=== PATIENT | male | born 1975 | race Caucasian/White ===

== ENCOUNTER → 2016-05-24 | Outpatient (CLI) | payer BC ==
[~2016-05-24] MED LIST: LITH300T2 PO; QUET300T2 PO
== END | disposition home or self-care (01) ==
LOC: C.LABBC 13:23
PROVIDERS: ATTEND Internal Medicine
DX: E03.9 Hypothyroidism, unspecified (principal)

== ENCOUNTER → 2017-07-06 | Outpatient (CLI) | payer OTHER ==
[2017-07-06 15:13] LABS: ALBUMIN 3.9 gm/dl (3.4-5.0); ALT/SGPT 35 U/L (12-78); BLOOD UREA NITROGEN 16 mg/dl (7-18); CALCIUM 9.3 mg/dl (8.5-10.1); CARBON DIOXIDE 25 mmol/L (21-32); CHOLESTEROL 175 mg/dl (0-200); CREATININE 0.96 mg/dl (0.60-1.40); GLUCOSE 99 mg/dl (70-99); POTASSIUM 3.8 mmol/L (3.5-5.1); SODIUM 138 mmol/L (136-145)
[2017-07-06 15:25] LABS: ALKALINE PHOSPHATASE 59 U/L (45-117); AST/SGOT 20 U/L (15-37); LDL CHOLESTEROL CALCULATED 109 mg/dl
== END | disposition home or self-care (01) ==
LOC: C.LABBC 10:39
PROVIDERS: ATTEND Nurse Practitioner Adult Health
DX: Z00.00 Encounter for general adult medical examination without abnormal findings (principal); E03.9 Hypothyroidism, unspecified; F31.9 Bipolar disorder, unspecified; E66.9 Obesity, unspecified

== ENCOUNTER 2022-03-16 17:48 | Inpatient (IN) ==
[2022-03-16 18:51] LABS: Basophils # (auto) 0.03 K/uL (0-0.2); Basophils % (auto) 0.2 %; Eosinophils # (auto) 0.17 K/uL (0-0.50); Eosinophils % (auto) 1.2 %; Hematocrit (blood only) 36.9 % (40.1-51.0); Hemoglobin 12.2 g/dl (14.0-18.0); Immature Granulocytes # (auto) 0.17 K/uL (0.00-0.02); Immature Granulocytes % (auto) 1.2 %; Lymphocytes # (auto) 0.79 K/uL (1.2-3.4); Lymphocytes % (auto) 5.7 %; Mean Corpuscular Hemoglobin 29.4 pg (25.0-34.0); Mean Corpuscular Hgb Conc 33.1 g/dL (32.0-36.0); Mean Corpuscular Volume 88.9 fL (80.0-100.0); Mean Platelet Volume 10.2 fL (9.4-12.4); Monocytes # (auto) 1.12 K/uL (0.24-0.82); Monocytes % (auto) 8.1 %; Neutrophils # (auto) 11.57 K/uL (1.4-6.5); Neutrophils % (auto) 83.6 %; Platelet Count 219 K/uL (130-400); RDW Standard Deviation 42.5 fL (36.4-46.3); Red Blood Count 4.15 M/uL (4.63-6.08); White Blood Count 13.85 K/ul (4.8-10.8)
[2022-03-16] MEDS ORDERED: SODIUM CHLORIDE 0.9% 1000ML 1,000 ML IV ONE (18:57)
[2022-03-16] MEDS ORDERED: CLINDAMYCIN/D5W 600 MG/50 ML BAG IV ONE (18:57)
--- NOTE | 2022-03-16 18:59 | Emergency Department Note ---
Impression & Plan Abscess of face ADMIT ED Provider Note HPI: The patient is a 46-year-old gentleman with history of bipolar disorder, presents the emergency department for evaluation of a dental infection. Patient states that this past (7 days ago) he developed some dental pain in the area of his left lower jaw, patient states that he developed some swelling over the past several days and actually saw his dentist on Sunday. He was referred to an oral surgeon who he saw today, Dr. Johnston in [place], and he states he was informed by Dr. Johnston to go to the emergency room at [facility] for IV antibiotics as the swelling had acutely worsened. Patient states that he lives in the [place] area and therefore did not want to go to the hospital at [place] and came to this hospital for further assessment. On arrival here the patient does have significant swelling in the soft tissue of the left lower mandible, he is saturating well on room air and he is tolerating his own secretions without issue, he is hemodynamically stable on arrival and otherwise does not appear to be in any acute physical distress. ROS: -HEENT: Left-sided jaw pain/dental pain *10 point review systems was conducted and is otherwise negative unless stated above *Outpatient medications and allergy history reviewed PE: General: Alert HEENT: Obvious swelling of the left mandibular region, poor dentition in the oral cavity throughout, no overlying cutaneous erythema, uvula is midline, no angioedema of lips or tongue Eyes: Extraocular eye movement is intact, no scleral erythema Pulmonary: Clear to auscultation bilaterally, no wheezing Cardio: Regular rate and rhythm GI: Abdomen is soft, nontender : No suprapubic tenderness MSK: No evidence of trauma or malformation of the extremities, no edema Skin: No evidence of rash Neuro: Alert, no focal deficits Psychiatric: Cooperative Interventions provided in ED: -IV clindamycin Medical Decision Making: Patient presented to the emergency department with some left-sided facial swelling that is been ongoing for the past week. He was referred to the hospital by an oral surgeon that he saw today in [place], [place]. Patient states he preferred to come to this hospital as he lives locally in [place]. On arrival here to the ED the patient is in no acute distress but does have obvious swelling of the left mandibular region consistent with likely abscess. CT imaging of the face with IV contrast was obtained and shows evidence of a 4 cm x 2 cm abscess within the left masseter muscle concerning for intramuscular abscess. Likely seeded from dental infection. Patient's lab work shows evidence of leukocytosis greater than 13,000, blood cultures were ordered and patient was treated with IV clindamycin as he is noted to have a penicillin allergy. Patient declined pain medication. I discussed the patient's case with on-call oral maxillofacial surgery, Dr. Mendes, he is in agreement for consultation and does recommend admission[facility], patient was in agreement to the above plan he was admitted in stable condition for further care and surgery consult. Diagnosis: 1. Intramuscular abscess, left masseter muscle 2. Facial pain, acute 3. Multiple dental caries Disposition: Admission Naveen Aldridge DO Emergency Medicine Past Med/Surg History Medical History (Updated 03/16/22 @ 21:17 by Naveen Aldridge DO) Bipolar disorder Hypothyroidism Surgical History (System 10/07/19 @ 10:46 by Sandy Reyes) No pertinent past surgical history Family History (System 10/07/19 @ 10:46 by Sandy Reyes) Mother Hypertension Hyperlipidemia Peripheral vascular disease Cancer Father Hearing loss Other No family history of adverse response to anesthesia No family history of bleeding disorder No pertinent family history Social History (Updated 02/16/20 @ 15:20 by Azalea Forte) Smoking Status: Former smoker Tobacco Type: Cigarettes Age Started Using Tobacco: 19; Cigarettes Per Day: 10; Hx Alcohol Use: No Hx Substance Use: No Preferred Language: Turkish Communication Ability: Effective Visual Impairment: Partially Limited Hearing Ability: Normal Tracer Clerk Required: No marital status: Single Current Living Situation: Alone current occupational status: employed current occupation: Educator Feels Safe at Home: Yes Childhood Exposure to Second-Hand Smoke: Yes caffeine: Yes Dental Care, Regularly: No Physical Activity Frequency: Does not Exercise Seatbelt Use: always Sunscreen Use: Yes Allergies Allergies Allergy/AdvReac Type Severity Reaction Status Date / Time Penicillins Allergy Unknown . Verified 03/16/22 18:32 shellfish derived Allergy Unknown Verified 03/16/22 18:32 Home Meds Home Medications Medication Instructions Recorded Confirmed lithium carbonate 300 mg tablet 1,500 mg PO HS 03/16/22 03/16/22 quetiapine 300 mg tablet,extended 600 mg PO HS 03/16/22 03/16/22 release 24 hr (Seroquel XR) Results & Data (ED) Vital Signs Vital Signs - 24 hr 03/16/22 18:02 03/16/22 21:06 Temperature 36.4 C L Temperature Source Temporal Artery Scan Pulse Rate 93 H Pulse Rate [Left Finger] 82 Pulse Rhythm Regular Pulse Rhythm [Left Finger] Regular Pulse Strength Normal Pulse Strength [Left Finger] Normal Respiratory Rate 18 18 Respiratory Effort / Characteristics Non-Labored Spontaneous Non-Labored Respiratory Depth Normal Normal Respiratory Pattern Regular Regular Blood Pressure 101/70 Blood Pressure [Right Arm] 119/76 Blood Pressure Mean 80 Blood Pressure Mean [Right Arm] 90 Blood Pressure Position Sitting Blood Pressure Position [Right Arm] Lying Pulse Oximetry 95 97 Oxygen Delivery Method Room Air Room Air Sepsis Recent Fever Within 48 Hours No Sepsis New/Unexplained Change in Mental Status No Sepsis Action Taken by Nursing No Action Required Laboratory Data Result diagrams: 03/16/22 18:39 03/16/22 18:39 Lab Results 03/16/22 03/16/22 Range/Units 18:39 18:39 WBC 13.85 H (4.8-10.8) K/ul RBC 4.15 L (4.63-6.08) M/uL Hgb 12.2 L (14.0-18.0) g/dl Hct 36.9 L (40.1-51.0) % MCV 88.9 (80.0-100.0) fL MCH 29.4 (25.0-34.0) pg MCHC 33.1 (32.0-36.0) g/dL RDW Std Deviation 42.5 (36.4-46.3) fL RDW Coeff of Guerrero 13.0 (11.5-14.5) % Plt Count 219 (130-400) K/uL MPV 10.2 (9.4-12.4) fL Immature Gran % (Auto) 1.2 % Neut % (Auto) 83.6 % Lymph % (Auto) 5.7 % [place] % (Auto) 8.1 % Eos % (Auto) 1.2 % Baso % (Auto) 0.2 % Neut # (Auto) 11.57 H (1.4-6.5) K/uL Lymph # (Auto) 0.79 L (1.2-3.4) K/uL [place] # (Auto) 1.12 H (0.24-0.82) K/uL Eos # (Auto) 0.17 (0-0.50) K/uL Baso # (Auto) 0.03 (0-0.2) K/uL Immature Gran # (Auto) 0.17 H (0.00-0.02) K/uL Sodium 133 L (136-145) mmol/L Potassium 3.6 (3.5-5.1) mmol/L Chloride 102 (98-107) mmol/L Carbon Dioxide 27 (21-32) mmol/L Anion Gap 4 (3-11) BUN 18 (6-23) mg/dl Creatinine 1.59 H (0.6-1.4) mg/dl Est Cr Clr Drug Dosing 67.6 ml/min Est GFR ( Amer) 59.0 ml/min Est GFR (Non-Af Amer) 50.9 ml/min BUN/Creatinine Ratio 11.3 (10-20) Glucose 127 H (70-99(Fasting)) mg/dl Calcium 9.2 (8.5-10.1) mg/dl Total Bilirubin 0.5 (0.2-1.0) mg/dl AST 42 H (13-39) U/L ALT 53 H (7-52) U/L Alkaline Phosphatase 81 (34-104) U/L Total Protein 6.8 (6.0-8.3) gm/dl Albumin 3.8 (3.4-5.0) gm/dl Globulin 3.0 (2.5-4.0) gm/dl Albumin/Globulin Ratio 1.3 (0.9-2) Administered Medications Discontinued Medications Clindamycin Phosphate (Cleocin/D5w) 600 mg in 50 mls @ 100 mls/hr IV NOW ONE Stop: 03/16/22 19:26 Last Infusion: 03/16/22 20:01 Dose: 0 mls/hr Documented By: [facility] Admin: 03/16/22 19:22 Dose: 100 mls/hr Documented By: EMILY Sodium Chloride (Nss 1000ml) 1,000 mls @ 999 mls/hr IV .Q1H1M ONE Stop: 03/16/22 19:57 Last Infusion: 03/16/22 20:24 Dose: 0 mls/hr Documented By: [facility] Admin: 03/16/22 19:22 Dose: 999 mls/hr Documented By: MICHELA Ioversol (Optiray 350 100ml) 80 ml IV ONCE ONE Stop: 03/16/22 19:53 Last Admin: 03/16/22 19:52 Dose: 80 ml Documented By: BETH Imaging Data Radiologist's Impression: Face CT 03/16/22 18:[address] WITH CONTRAST CLINICAL HISTORY: Left-sided facial swelling. Evaluate for abscess. COMPARISON STUDY: Sinus CT May 30, 2011. TECHNIQUE: Axial images of the face were obtained following intravenous injection of 81 cc of Optiray 350 IV. Sagittal and coronal reconstructions were viewed. Automated exposure control was utilized for the study. A dose lowering technique was utilized adhering to the principles of ALARA. FINDINGS: Visualized portions of the intracranial contents are unremarkable. Mastoid air cells are clear. There is mild polypoid mucosal thickening of the sinuses. Orbits are unremarkable. There is extensive left facial and upper neck stranding. There is asymmetric thickening of the left platysma. Note is made of a complex multiloculated rim-enhancing fluid collection within the left masseter muscle. This measures approximately 4 x 2 x 1.7 cm. Possible tiny fluid collection within the medial left medial pterygoid muscle is noted with slight asymmetric enlargement of this muscle as well. There is adjacent stranding. No additional fluid collections are present. The parotid and submandibular glands are unremarkable. There is no mass effect upon the airway. Epiglottis is normal. Several dental caries are noted. There is subtle periapical lucency of the left second mandibular molar. Multiple enlarged left cervical lymph nodes are noted. Index left level 2 node measures 1.4 x 1.3 cm. These nodes are likely reactive. IMPRESSION: 1. Left facial and upper neck cellulitis. Rim-enhancing fluid collection within the left masseter muscle, measuring approximately 4 x 2 x 1.7 cm. This represents an intramuscular abscess. Possible tiny abscess within the left medial pterygoid muscle. Definitive source is not identified although this may be odontogenic. Subtle periapical lucency/abscess of the left second mandibular molar. Multiple dental caries. 2. Left cervical lymphadenopathy which is likely reactive. ACT 112: Negative or not required by law. Electronically signed by: Hunter Cristina M.D. 03/16/2022 8:12 PM Discharge Plan Visit Data Chief Complaint: Referred by Doctor Stated Complaint: REFERRED BY DOC, IV ANTIBIOTIC ED Provider: Naveen Aldridge Discharge Problem: Abscess of face Forms Stand Alone Forms: [facility] Prescriptions Prescriptions: No Action lithium carbonate 300 mg tablet 1,500 mg PO HS quetiapine [Seroquel XR] 300 mg tablet extended release 24 hr 600 mg PO HS Referrals Referrals: Tez Randolph MD [Primary Care Provider] -
[2022-03-16 19:09] LABS: Albumin Globulin Ratio 1.3 (0.9-2); Albumin Level 3.8 gm/dl (3.4-5.0); BUN Creatinine Ratio 11.3 (10-20); Bilirubin,Total 0.5 mg/dl (0.2-1.0); Calcium 9.2 mg/dl (8.5-10.1); Creatinine Clr Calc Pharmacy 67.6 ml/min; Est GFR (Non-African American) 50.9 ml/min; Potassium 3.6 mmol/L (3.5-5.1); Total Protein 6.8 gm/dl (6.0-8.3)
[2022-03-16] MEDS ORDERED: OPTIRAY 350 100ml IV ONE (19:52)
--- NOTE | 2022-03-16 20:14 | CT Scan Report ---
FACIAL CT WITH CONTRAST CLINICAL HISTORY: Left-sided facial swelling. Evaluate for abscess. COMPARISON STUDY: Sinus CT May 30, 2011. TECHNIQUE: Axial images of the face were obtained following intravenous injection of 81 cc of Optiray 350 IV. Sagittal and coronal reconstructions were viewed. Automated exposure control was utilized fo r the study. A dose lowering technique was utilized adhering to the principles of ALARA. FINDINGS: Visualized portions of the intracranial contents are unremarkable. Mastoid air cells are cl ear. There is mild polypoid mucosal thickening of the sinuses. Orbits are unremarkable. There is exte nsive left facial and upper neck stranding. There is asymmetric thickening of the left platysma. Note is made of a complex multiloculated rim-enhancing fluid collection within the left masseter muscle. This measures approximately 4 x 2 x 1.7 cm. Possible tiny fluid collection within the medial left med ial pterygoid muscle is noted with slight asymmetric enlargement of this muscle as well. There is adj acent stranding. No additional fluid collections are present. The parotid and submandibular glands ar e unremarkable. There is no mass effect upon the airway. Epiglottis is normal. Several dental caries are noted. There is subtle periapical lucency of the left second mandibular molar. Multiple enlarged left cervical lymph nodes are noted. Index left level 2 node measures 1.4 x 1.3 cm. These nodes are l ikely reactive. IMPRESSION: 1. Left facial and upper neck cellulitis. Rim-enhancing fluid collection within the left masseter mu scle, measuring approximately 4 x 2 x 1.7 cm. This represents an intramuscular abscess. Possible tiny abscess within the left medial pterygoid muscle. Definitive source is not identified although this m ay be odontogenic. Subtle periapical lucency/abscess of the left second mandibular molar. Multiple de ntal caries. 2. Left cervical lymphadenopathy which is likely reactive. ACT 112: Negative or not required by law. Electronically signed by: Hunter Cristina M.D. 03/16/2022 8:12 PM
--- NOTE | 2022-03-16 21:11 | History & Physical Report ---
Date of Service March 16, 2022 Assessment & Plan (1) Cellulitis and abscess of oral soft tissues: Plan: - 1 week of worsening left sided jaw pain and swelling. - Face CT: * Left facial and upper neck cellulitis. Rim-enhancing fluid collection within the left masseter muscle, measuring approximately 4 x 2 x 1.7 cm. This represents an intramuscular abscess. Possible tiny abscess within the left medial pterygoid muscle. Definitive source is not identified although this may be odontogenic. Subtle periapical lucency/abscess of the left second mandibular molar. Multiple dental caries. * Left cervical lymphadenopathy which is likely reactive. - WBC 13 w/ neutrophil predominance. - Admit to PCU to monitor airway given severity of swelling. HOB elevated at night. - Patient will be placed on clindamycin IV and NPO at midnight per possible OR tomorrow. - Dr. Mendes with oromaxillary service consulted, appreciate his assistance and recommendations. (2) Bipolar disorder: Plan: - Hold lithium given low sodium and ZHANNA. Continue Seroquel--patient requires name brand, he has been informed we only have generic care, he is willing to have family member bring in his home medication. - Checking a lithium level. (3) Hypothyroidism: Plan: - Reported history of, no current medications past several years. Used to be on low-dose. - Checking TSH w/ reflex T4. (4) ZHANNA (acute kidney injury): Plan: - Cr 1.59, baseline < 1 - Suspect secondary to poor PO intake due to swelling from infection, also lithium induced. - NSS 1L in ED; continue LRs 125cc/hr. - Repeat BMP in AM. - Renally dose medications as able, avoid nephrotoxins. (5) Hyponatremia: Plan: - Na 133, suspect 2/2 poor hydration and lithium. - Urine, serum osm to be added on. - Will provide IVF given Zhanna and monitor for improvement. (6) Currently smokes tobacco: Plan: - Quit smoking cigarettes in November, uses chewing tobacco frequently, not daily. - Recommend cessation. Plan - Admit to PCU for airway monitoring. - SCDs for VTE ppx, defer on chemoppx given age, mobility. - Full Code. History of Present Illness Chief Complaint: Left-sided facial swelling, pain x 1 week Primary Care Provider: Tez Randolph MD Farzad Hunt is a 46 y/o male with a PMH of bipolar disorder and hypothyroidism who is presenting today at the referral of an outside oral surgeon due to concerns for facial cellulitis and abscess. One week ago today, he noticed a sudden onset of stabbing jaw pain on the left side that was mild at first, however over the course of 3 days became quite severe. On Sunday he woke up with obvious swelling on the left side of his face in the jaw area. He saw his dentist 2 placed him on clindamycin with Flagyl and referred him to an oral surgeon. He saw Dr. Johnston in [place] today, due to the severity of the swelling and the fact that he will be getting worse despite oral antibiotics for 2 days, he referred him to the ED for further evaluation. Patient complains of worsening swelling to the area causing a great deal of pain, otherwise has been without any fever chills, myalgias, fatigue. Feels he is breathing well, handling his own secretions and has not had any swallowing difficulties. It is somewhat uncomfortable for him to sleep at night, but has not been struggling to breathe. He is not sure how the infection started, he notes he does have several dental cavities he has been meaning to address, but has had no acute injury to the mouth, no recent injuries. He does use smokeless tobacco several times a week. Labs significant for WBC 13 w/ left shift, creatinine elevated 1.59, with sodium of 133. AST and ALT also mildly elevated at 42 and 53 respectively. He also has a normocytic anemia, with an Hgb of 12.2. 13.7 on last check in 2019. Face CT: Left facial and upper neck cellulitis. Rim-enhancing fluid collection within the left masseter muscle, measuring approximately 4 x 2 x 1.7 cm. This re presents an intramuscular abscess. Possible tiny abscess within the left medial pterygoid muscle. Definitive source is not identified although this may be odontogenic. Subtle periapical lucency/abscess of the left second mandibular molar. Multiple dental caries. Allergies Allergy/AdvReac Type Severity Reaction Status Date / Time Penicillins Allergy Unknown . Verified 03/16/22 18:32 shellfish derived Allergy Unknown Verified 03/16/22 18:32 Home Medications Medication Instructions Recorded Confirmed Type lithium carbonate 300 mg tablet 1,500 mg PO HS 03/16/22 03/16/22 History quetiapine 300 mg tablet,extended 600 mg PO HS 03/16/22 03/16/22 History release 24 hr (Seroquel XR) Past Med/Surg History Medical History Bipolar disorder Hypothyroidism Surgical History No pertinent past surgical history Family History Mother Hypertension Hyperlipidemia Peripheral vascular disease Cancer Father Hearing loss Other No family history of adverse response to anesthesia No family history of bleeding disorder No pertinent family history Social History Smoking Status: Former smoker Tobacco Type: Cigarettes Age Started Using Tobacco: 19; Cigarettes Per Day: 10; Hx Alcohol Use: No Hx Substance Use: No Preferred Language: Belarusian Communication Ability: Effective Visual Impairment: Partially Limited Hearing Ability: Normal Hose Seamer Required: No Beliefs That Will Affect Care: None marital status: Single Current Living Situation: Alone current occupational status: employed current occupation: Educator Other Information That Helps Us Care for You: No Feels Safe at Home: Yes Safety Concerns: Feels Safe At This Time Childhood Exposure to Second-Hand Smoke: Yes caffeine: Yes Dental Care, Regularly: No Physical Activity Frequency: Does not Exercise Seatbelt Use: always Sunscreen Use: Yes Assistive Devices: None Review of Systems Review of Systems: Constitutional: No fever/chills, weakness, fatigue, myalgias, anorexia, night sweats Eyes: No diplopia, no worsening or blurred vision ENT: Progressive left-sided stabbing jaw pain, swelling, difficulty opening jaw x1 week Respiratory: No cough, sputum, dyspnea at rest or on exertion Cardiovascular: No chest pain, tightness or palpitations Abdomen: No pain, nausea, vomiting, diarrhea or constipation : Denies dysuria, hematuria, increased urgency/frequency, urinary retention Musculoskeletal: No joint pain, calf pain, swelling Neurologic: No weakness, numbness/tingling, or balance problems Psychiatric: No anxiety or depression Skin: No rash or itch Physical Exam Physical Exam: General: awake, alert, no apparent distress Head: Normocephalic, atraumatic ENT: Left-sided facial and jaw swelling with tenderness to palpation; oral exam limited due to patient's inability to open mouth wide, however uvula is midline, there is no tongue or lip swelling, poor dentition noted throughout; PERRL, EOMI, no pharyngeal exudate, mucous membranes moist Chest: Clear to auscultation, on room air, no adventitious breath sounds Cardiac: Regular rate and rhythm, no murmur, no JVD, normal peripheral pulses, good capillary refill Abdominal: NABS x 4 quadrants, soft, nontender to palpation, no rebound, guarding or tenderness Extremities: Normal inspection, no peripheral edema or erythema, calfs nontender to palpation Psych: Normal mood and affect Neuro: AAO x 3, strength intact bilaterally and rated 5/5, no motor deficits, speech is clear, no peripheral sensory deficits Skin: no rash or erythema Results & Data Results & Data ([facility]) Vital Signs (Past 12 Hours) Vital Signs Temp Pulse Resp BP Pulse Ox O2 Del Method 03/16/22 18:02 36.4 C L 93 H 18 101/70 95 Room Air Laboratory Results Abnormal lab results 03/16/22 03/16/22 03/16/22 Range/Units 18:39 18:39 20:49 WBC 13.85 H (4.8-10.8) K/ul RBC 4.15 L (4.63-6.08) M/uL Hgb 12.2 L (14.0-18.0) g/dl Hct 36.9 L (40.1-51.0) % Neut # (Auto) 11.57 H (1.4-6.5) K/uL Lymph # (Auto) 0.79 L (1.2-3.4) K/uL Evangeline # (Auto) 1.12 H (0.24-0.82) K/uL Immature Gran # (Auto) 0.17 H (0.00-0.02) K/uL Sodium 133 L (136-145) mmol/L Creatinine 1.59 H (0.6-1.4) mg/dl Glucose 127 H (70-99(Fasting)) mg/dl AST 42 H (13-39) U/L ALT 53 H (7-52) U/L Ur Specific [place] 1.038 H (1.000-1.030) Urine Urobilinogen Positive H (Negative) Ur Leukocyte Esterase Trace H (Negative) Diagnostic Findings Face CT 03/16/22 18:[address] WITH CONTRAST CLINICAL HISTORY: Left-sided facial swelling. Evaluate for abscess. COMPARISON STUDY: Sinus CT May 30, 2011. TECHNIQUE: Axial images of the face were obtained following intravenous injection of 81 cc of Optiray 350 IV. Sagittal and coronal reconstructions were viewed. Automated exposure control was utilized for the study. A dose lowering technique was utilized adhering to the principles of ALARA. FINDINGS: Visualized portions of the intracranial contents are unremarkable. Mastoid air cells are clear. There is mild polypoid mucosal thickening of the sinuses. Orbits are unremarkable. There is extensive left facial and upper neck stranding. There is asymmetric thickening of the left platysma. Note is made of a complex multiloculated rim-enhancing fluid collection within the left masseter muscle. This measures approximately 4 x 2 x 1.7 cm. Possible tiny fluid collection within the medial left medial pterygoid muscle is noted with slight asymmetric enlargement of this muscle as well. There is adjacent stranding. No additional fluid collections are present. The parotid and submandibular glands are unremarkable. There is no mass effect upon the airway. Epiglottis is normal. Several dental caries are noted. There is subtle periapical lucency of the left second mandibular molar. Multiple enlarged left cervical lymph nodes are noted. Index left level 2 node measures 1.4 x 1.3 cm. These nodes are likely reactive. IMPRESSION: 1. Left facial and upper neck cellulitis. Rim-enhancing fluid collection within the left masseter muscle, measuring approximately 4 x 2 x 1.7 cm. This represents an intramuscular abscess. Possible tiny abscess within the left medial pterygoid muscle. Definitive source is not identified although this may be odontogenic. Subtle periapical lucency/abscess of the left second mandibular molar. Multiple dental caries. 2. Left cervical lymphadenopathy which is likely reactive. ACT 112: Negative or not required by law. Electronically signed by: Hunter Cristina M.D. 03/16/2022 8:12 PM Supervising Physician Co-Signing Physician Notes Attending addendum: I have physically seen this patient, have supervised the FELI's activities, and agree with the H&P unless as otherwise noted. Assessment and Plan: Cellulitis and abscess of oral soft tissue/left masseter muscle fluid collection/abscess Dr. Mendes, maxillofacial surgery is aware of patient- Allergic to penicillins Placed on clindamycin 600 mg IV every 8 hours N.p.o. for possible OR tomorrow Acute kidney injury- Creatinine 1.59, with baseline 0.88 Continue IV fluid rehydration, and repeat laboratories in a.m. Check lithium level for possible lithium toxicity Bipolar disorder- Holding lithium due to potential for exacerbating of acute kidney injury Continue Seroquel XR Remaining orders and notations as noted PG Care Time/CCT Total # of Minutes Spent Total Time Spent with Patient: Total time spent is greater than 50% in coordination of care (as documented) at patient's floor/unit and/or counseling patient: Coding Level of Care Code 00529 Initial Inpt Care Lvl 3 Diagnoses Cellulitis and abscess of oral soft tissues K12.2 Bipolar disorder F31.9 Hypothyroidism E03.9 ZHANNA (acute kidney injury) N17.9 Hyponatremia E87.1 Currently smokes tobacco F17.200
[2022-03-16 21:35] LABS: Appearance Urine Clear (Clear); Bacteria Urine Automated Negative (Negative); Bilirubin Urine Negative (Negative); Blood Urine Negative (Negative); Color Urine Yellow; Epithelial Cell Urine Auto >30 /lpf (0-5); Glucose Urine UA Negative (Negative); Ketones Urine Negative (Negative); Leukocyte Esterase Urine Trace (Negative); Nitrite Urine Negative (Negative); Protein Urine Negative (Negative); RBC Urine Automated 0-4 /hpf (0-4); Specific Gravity Urine 1.038 (1.000-1.030); Urobilinogen Urine Positive (Negative); WBC Urine Automated >30 /hpf (0-5); pH Urine 5.5 (4.5-7.5)
[2022-03-16] MEDS ORDERED: ONDANSETRON INJ 2 MG/ML 2 ML VIAL IV PRN (22:27)
[2022-03-16] MEDS ORDERED: MoRPHine SULFATE 4 MG/ML 1 ML CARP\\VIAL IV PRN (22:27)
[2022-03-16] MEDS ORDERED: MoRPHine SULFATE 2 MG/ML CARP IV PRN (22:27)
[2022-03-16] MEDS: LACTATED RINGER'S 1,000 ML IV SCH (23:39)
[2022-03-17] MEDS: CLINDAMYCIN/D5W 600 MG/50 ML BAG IV SCH ×3 (03:08→21:35)
[2022-03-17 06:58] LABS: Basophils # (auto) 0.03 K/uL (0-0.2); Basophils % (auto) 0.3 %; Eosinophils # (auto) 0.23 K/uL (0-0.50); Hematocrit (blood only) 38.1 % (40.1-51.0); Hemoglobin 12.4 g/dl (14.0-18.0); Immature Granulocytes # (auto) 0.09 K/uL (0.00-0.02); Immature Granulocytes % (auto) 0.8 %; Lymphocytes # (auto) 0.96 K/uL (1.2-3.4); Lymphocytes % (auto) 8.3 %; Mean Corpuscular Hemoglobin 29.4 pg (25.0-34.0); Mean Corpuscular Hgb Conc 32.5 g/dL (32.0-36.0); Mean Corpuscular Volume 90.3 fL (80.0-100.0); Mean Platelet Volume 10.2 fL (9.4-12.4); Monocytes # (auto) 0.86 K/uL (0.24-0.82); Monocytes % (auto) 7.4 %; Neutrophils # (auto) 9.43 K/uL (1.4-6.5); Neutrophils % (auto) 81.2 %; Platelet Count 240 K/uL (130-400); RDW Coefficient of Variation 13.4 % (11.5-14.5); RDW Standard Deviation 44.2 fL (36.4-46.3); Red Blood Count 4.22 M/uL (4.63-6.08)
[2022-03-17 07:50] LABS: BUN Creatinine Ratio 11.9 (10-20); Calcium 9.6 mg/dl (8.5-10.1); Creatinine Clr Calc Pharmacy 105.8 ml/min; Est GFR (African American) 102.2 ml/min; Est GFR (Non-African American) 88.2 ml/min; Magnesium 2.5 mg/dl (1.7-2.4); Potassium 3.6 mmol/L (3.5-5.1)
[2022-03-17] MEDS: LACTATED RINGER'S 1,000 ML IV SCH (12:39)
--- NOTE | 2022-03-17 13:58 | Hospitalist Progress Note ---
Date of Service March 17, 2022 Assessment & Plan (1) Cellulitis and abscess of oral soft tissues: Plan: - 1 week of worsening left sided jaw pain and swelling. - Face CT: * Left facial and upper neck cellulitis. Rim-enhancing fluid collection within the left masseter muscle, measuring approximately 4 x 2 x 1.7 cm. This represents an intramuscular abscess. Possible tiny abscess within the left medial pterygoid muscle. Definitive source is not identified although this may be odontogenic. Subtle periapical lucency/abscess of the left second mandibular molar. Multiple dental caries. * Left cervical lymphadenopathy which is likely reactive. - WBC 13 w/ neutrophil predominance. - Admit to PCU to monitor airway given severity of swelling. HOB elevated at night. - Patient will be placed on clindamycin IV, continue NPO pending surgery later today - Dr. Mendes with oromaxillary service consulted, appreciate his assistance and recommendations - planning on surgery later today (2) Bipolar disorder: Plan: - Hold lithium given elevated level, suspect due to elevated Cr. Likely can resume tomorrow - continue seroquel (3) ZHANNA (acute kidney injury): Plan: Resolved with IV fluids, continue perioperatively (4) Hyponatremia: Plan: Resolved with IV fluids (5) Currently smokes tobacco: Plan: - Quit smoking cigarettes in November, uses chewing tobacco frequently, not daily. - Recommend cessation. Plan - Admit to PCU for airway monitoring. - SCDs for VTE ppx, defer on chemoppx given age, mobility. - Full Code. Admission and Anticipated Discharge Date Admission Date: March 16, 2022 Subjective Reports swelling is already decreasing pre-operatively. No fever or chills. No difficulty breathing. Review of Systems Review of Systems: All systems reviewed & are unremarkable except as noted in Subjective Physical Exam Constitutional: WD/WN, vitals as above Respiratory: normal respiratory effort, lungs clear to auscultation no stridor Cardiovascular: RRR, no murmur, no edema Gastrointestinal (Abdomen): normal bowel sounds, soft, nontender, no hepatosplenomegaly Psychiatric: A+Ox3, euthymic affect Results & Data Results & Data ([facility]) Vital Signs (Past 12 Hours) Vital Signs Temp Pulse Pulse Resp BP Pulse Ox O2 Del Method 03/17/22 12:00 36.8 C 90 20 114/75 97 Room Air 03/17/22 08:00 36.8 C 112 H 18 129/79 97 Room Air 03/17/22 07:43 101 H 03/17/22 02:53 36.9 C 87 17 128/74 94 Room Air PG Care Time/CCT Total # of Minutes Spent Total Time Spent with Patient: Total time spent is greater than 50% in coordination of care (as documented) at patient's floor/unit and/or counseling patient: Coding Level of Care Code 65078 Subseq Hosp Care Lvl 2 Diagnoses Cellulitis and abscess of oral soft tissues K12.2 Bipolar disorder F31.9 ZHANNA (acute kidney injury) N17.9 Hyponatremia E87.1 Currently smokes tobacco F17.200
[2022-03-17] MEDS ORDERED: BUPIVACAINE/EPINEPHRINE 0.5% 1:200,000 1.8 ML CARP ONE (17:04)
[2022-03-17] MEDS ORDERED: PROPOFOL IV EMULSION 10 MG/ML 20 ML VIAL IV ONE ×2 (17:09→18:15)
[2022-03-17] MEDS ORDERED: MIDAZOLAM HCL 1 MG/ML 2ML VIAL ONE (17:09)
[2022-03-17] MEDS ORDERED: ONDANSETRON INJ 2 MG/ML 2 ML VIAL ONE (17:09)
[2022-03-17] MEDS ORDERED: LIDOCAINE 2% 2 ML VIAL/AMP(20MG/ML) INFIL ONE (17:09)
[2022-03-17] MEDS ORDERED: fentaNYL citrate 100 MCG/2 ML VIAL ONE (17:09)
[2022-03-17] MEDS ORDERED: ATROPINE SULFATE 0.1 MG/ML 10ML SYR IV PRN (17:10)
[2022-03-17] MEDS ORDERED: ePHEDrine sulfate 50 MG/ML AMP IV PRN (17:10)
[2022-03-17] MEDS ORDERED: HYDROmorphone INJ 2 MG/ML SYR/VIAL IV PRN (17:10)
[2022-03-17] MEDS ORDERED: ONDANSETRON INJ 2 MG/ML 2 ML VIAL IV PRN (17:10)
--- NOTE | 2022-03-17 17:10 | Anesthesiology Consultation ---
Date of Service March 17, 2022 Assessment & Plan ASA ASA3 Proposed Anesthesia Anesthesia Type: General Risk / Benefits Reviewed With: PT / POA / Parent / Guardian, Accepts Plan and Informed Consent Obtained History Surgery Operation Date: 03/17/22 12:25 Proposed Procedures p Extraction 1 Tooth, Possible #17 or #18 - Joshua Mendes, DMD s Incision and Drainage Abscess Lower left Side - Joshua R Cinthya DMD Height/Weight Height: 5 ft 9 in Weight: 100.7 kg Allergies Allergy/AdvReac Type Severity Reaction Status Date / Time Penicillins Allergy Unknown . Verified 03/16/22 18:32 shellfish derived Allergy Unknown Verified 03/16/22 18:32 Medications Home Medications Medication Instructions Recorded Confirmed Last Taken lithium carbonate 300 mg tablet 1,500 mg PO HS 03/16/22 03/16/22 Unknown quetiapine 300 mg tablet,extended 600 mg PO HS 03/16/22 03/16/22 Unknown release 24 hr (Seroquel XR) Active Medications Generic Name Dose Route Start Last Admin Trade Name Freq PRN Reason Stop Dose Admin Clindamycin Phosphate 600 mg in 50 mls @ 100 mls/hr 03/17/22 04:00 03/17/22 13:26 Cleocin/D5w IV 03/27/22 03:59 Infused Q8H MICHELLE Infusion Lactated Ringer's 1,000 mls @ 125 mls/hr 03/16/22 22:27 03/17/22 16:35 Lr IV 04/15/22 22:26 0 mls/hr .Q8H MICHELLE Infusion Quetiapine Fumarate 600 mg 03/17/22 00:30 03/17/22 00:39 Quetiapine Fumarate 150 Mg Tabcr PO 04/16/22 00:29 600 mg HS MICHELLE Administration NPO Date Last Intake of Fluids: 03/17/22 Time Last Intake of Fluids: 10:00 Last Intake of Fluids Comment: sips and chips Date Last Intake of Solids: 03/15/22 Past Medical History Medical History Bipolar disorder Hypothyroidism Exercise / Class Metabolic Activity II 4-5 Yardwork/Stairs/Walk up hill Past Family History Family History Mother Hypertension Hyperlipidemia Peripheral vascular disease Cancer Father Hearing loss Other No family history of adverse response to anesthesia No family history of bleeding disorder No pertinent family history Past Surgical History Surgical History No pertinent past surgical history Past Anesthesia History No Hx of Anesthesia Complications and No Family Hx of Anesthesia Complications History of PONV No Hx of PONV and No Hx of Motion Sickness Social History Smoking Status: Former smoker Smoking cigarettes per day: 10 Hx Alcohol Use: No Hx Substance Use: No Review of Systems denies fever/cough/ colds/ chest pain/ SOB/ LUKASZ denies LUKASZ Physical Exam Vital Signs Last Vital Signs Temp 36.8 C 03/17/22 12:00 Pulse 88 03/17/22 15:35 Resp 20 03/17/22 12:00 BP 114/75 03/17/22 12:00 Pulse Ox 97 03/17/22 12:00 O2 Del Method 03/17/22 12:00 ENMT Mouth: no TMJ abnormality and no dentition abnormality Thyromental Distance: > or= 3.5 Finger Breadths Mallampati Class: II Neck neck extension not limited Respiratory normal respiratory effort; no respiratory distress Auscultation: lungs clear to auscultation bilaterally Cardiovascular Rate/Rhythm: regular rate and regular rhythm Neurologic moves all extremities Psychiatric Orientation: alert and oriented x 3 Testing Laboratory Results 03/17/22 06:12 03/17/22 06:12 Urine Color Yellow 03/16/22 20:49 Urine Appearance Clear (Clear) 03/16/22 20:49 Urine pH 5.5 (4.5-7.5) 03/16/22 20:49 Ur Specific [place] 1.038 (1.000-1.030) H 03/16/22 20:49 Urine Protein Negative (Negative) 03/16/22 20:49 Urine Glucose (UA) Negative (Negative) 03/16/22 20:49 Urine Ketones Negative (Negative) 03/16/22 20:49 Urine Nitrite Negative (Negative) 03/16/22 20:49 Ur Leukocyte Esterase Trace (Negative) H 03/16/22 20:49 Urine WBC (Auto) >30 /hpf (0-5) H 03/16/22 20:49 Urine RBC (Auto) 0-4 /hpf (0-4) 03/16/22 20:49 U Hyaline Cast (Auto) 1-5 /lpf (0-5) 03/16/22 20:49 U Epithel Cells (Auto) >30 /lpf (0-5) H 03/16/22 20:49 Urine Bacteria (Auto) Negative (Negative) 03/16/22 20:49 03/16/22 20:49 Urine Culture - Preliminary Urine,Clean Catch No growth - Less than 1,000 colonies/mL, Final report to follow.
[2022-03-17] MEDS ORDERED: SUCCINYLCHOLINE CHLORIDE 20 MG/ML 10 ML VIAL IV ONE (17:18)
[2022-03-17] MEDS ORDERED: ROCURONIUM BROMIDE 10 MG/ML 5 ML VIAL IV ONE (17:18)
--- NOTE | 2022-03-17 17:30 | Oral/Maxillofacial Consult ---
Date of Consultation March 17, 2022 Assessment & Plan (1) Cellulitis and abscess of oral soft tissues: (2) Abscess of face: (3) Bipolar disorder: History of Present Illness Attending Physician: Mata Conti MD History of Present Illness Oral Maxillofacial Surgery Exam Present Complaint: I have pain/swelling/drainage from my infected lower left molar Symptoms have been ongoing for a while. Saw dentist but secondary to limited opening could not offer any help Referred to [facility] ER Oral Exam: Finding-Gross swelling and limited opening associated with the carious tooth # 18 , tender gingival tissue with deep pocket formation.# 18 requires extraction with extraoral I&D left submandibular space abscess Imaging: FACIAL CT WITH CONTRAST CLINICAL HISTORY: Left-sided facial swelling. Evaluate for abscess. COMPARISON STUDY: Sinus CT May 30, 2011. TECHNIQUE: Axial images of the face were obtained following intravenous injection of 81 cc of Optiray 350 IV. Sagittal and coronal reconstructions were viewed. Automated exposure control was utilized for the study. A dose lowering technique was utilized adhering to the principles of ALARA. FINDINGS: Visualized portions of the intracranial contents are unremarkable. Mastoid air cells are clear. There is mild polypoid mucosal thickening of the sinuses. Orbits are unremarkable. There is extensive left facial and upper neck stranding. There is asymmetric thickening of the left platysma. Note is made of a complex multiloculated rim-enhancing fluid collection within the left masseter muscle. This measures approximately 4 x 2 x 1.7 cm. Possible tiny fluid collection within the medial left medial pterygoid muscle is noted with slight asymmetric enlargement of this muscle as well. There is adjacent stranding. No additional fluid collections are present. The parotid and submandibular glands are unremarkable. There is no mass effect upon the airway. Epiglottis is normal. Several dental caries are noted. There is subtle periapical lucency of the left second mandibular molar. Multiple enlarged left cervical lymph nodes are noted. Index left level 2 node measures 1.4 x 1.3 cm. These nodes are likely reactive. IMPRESSION: 1. Left facial and upper neck cellulitis. Rim-enhancing fluid collection within the left masseter muscle, measuring approximately 4 x 2 x 1.7 cm. This represents an intramuscular abscess. Possible tiny abscess within the left medial pterygoid muscle. Definitive source is not identified although this may be odontogenic. Subtle periapical lucency/abscess of the left second mandibular molar. Multiple dental caries. 2. Left cervical lymphadenopathy which is likely reactive. Soft tissue: floor of the mouth left side =swollen, tongue, hard/soft palate=WNL Some posterior pharyngeal area swelling but difficult to see secondary to the limited opening Oral Care: Overall oral care is fair Occlusion: Class I TMJ exam: Not able to determine Periodontal exam: Fair Head/Neck exam: Neck is supple, FROM, Able to extend and flex neck w/o difficulty, no airway issues, ? evidence of sleep apnea. gross swelling of the left floor of the mouth, mandibular space and submandibular space abscess Treatment Plan: Extra oral I&D of submandibular space, masseter space and floor of the mouth Set up with general anesthesia in hospita due to complexity of the procedure I reviewed the treatment plan and consent with the patient Understanding was expressed. Time was given for questions regarding the surgery, risks and post op care. Discussed alternative to treatment--procedure as planned, Do not do surgery Risks discussed: Bleeding,Pain,swelling,infection, dry socket, delayed healing, nerve injury to face,lips,tongue,chin area which could be permanent (rare). TMJ, jaw stiffness, change in bite (rare), ear pain (referred). Sinus problems like fistula or infection. Need to leave a small root fragment in place to avoid injury to nerve or sinus. Relationship of wisdom teeth to nerve/sinus and risk of jaw fracture. Home care reviewed: tooth brushing, rinsing, follow up care with Dr Mendes. diet=[id number] dental. Discussed activity level, driving/work while on Rx pain Meds. Surgery to be set up as emergence this afternoon in OR Allergies Allergy/AdvReac Type Severity Reaction Status Date / Time Penicillins Allergy Unknown . Verified 03/16/22 18:32 shellfish derived Allergy Unknown Verified 03/16/22 18:32 Home Medications Medication Instructions Recorded Confirmed Type lithium carbonate 300 mg tablet 1,500 mg PO HS 03/16/22 03/16/22 History quetiapine 300 mg tablet,extended 600 mg PO HS 03/16/22 03/16/22 History release 24 hr (Seroquel XR) Patient History Medical History Bipolar disorder Hypothyroidism Surgical History No pertinent past surgical history Family History Mother Hypertension Hyperlipidemia Peripheral vascular disease Cancer Father Hearing loss Other No family history of adverse response to anesthesia No family history of bleeding disorder No pertinent family history Social History Smoking Status: Former smoker Tobacco Type: Cigarettes Age Started Using Tobacco: 19; Cigarettes Per Day: 10; Hx Alcohol Use: No Hx Substance Use: No Preferred Language: Estonian Communication Ability: Effective Visual Impairment: Partially Limited Hearing Ability: Normal Election Assistant Required: No Beliefs That Will Affect Care: None marital status: Single Current Living Situation: Alone current occupational status: employed current occupation: Educator Other Information That Helps Us Care for You: No Feels Safe at Home: Yes Safety Concerns: Feels Safe At This Time Childhood Exposure to Second-Hand Smoke: Yes caffeine: Yes Dental Care, Regularly: No Physical Activity Frequency: Does not Exercise Seatbelt Use: always Sunscreen Use: Yes Assistive Devices: None Results & Data ([facility]) Vital Signs (Past 12 Hours) Vital Signs Temp Pulse Pulse Resp BP Pulse Ox O2 Del Method 03/17/22 15:35 88 03/17/22 12:00 36.8 C 90 20 114/75 97 Room Air 03/17/22 08:00 36.8 C 112 H 18 129/79 97 Room Air 03/17/22 07:43 101 H PG Care Time/CCT Total # of Minutes Spent Total Time Spent with Patient: Total time spent is greater than 50% in coordination of care (as documented) at patient's floor/unit and/or counseling patient: Coding Level of Care Code 40772 Office/OBS Consult Lvl 3 Diagnoses Cellulitis and abscess of oral soft tissues K12.2 Abscess of face L02.01 Bipolar disorder F31.9
--- NOTE | 2022-03-17 17:34 | History & Physical Bridge Note ---
Date of Service March 17, 2022 History & Physical Bridge Note I have examined the patient, reviewed the History & Physical and in the interval since the performance of the History & Physical I have noted the following changes of clinical significance: no changes noted Reviewed the surgery with patient I&D left submandibular space, masseter and mandibular space infection extraction of # 18 tooth
[2022-03-17] MEDS ORDERED: CHLORHEXIDINE GLUCONATE 0.12% 480 ML MT ONE (17:48)
[2022-03-17] MEDS ORDERED: ESMOLOL HCL INJ 10 MG/ML 10ML VIAL IV ONE (18:05)
[2022-03-17] MEDS ORDERED: SUGAMMADEX SODIUM 200 MG/2 ML VIAL IV ONE (18:05)
[2022-03-17] MEDS ORDERED: CLINDAMYCIN 900 MG/D5W 50 ML BAG IV ONE (18:09)
--- NOTE | 2022-03-17 18:53 | Operative Report ---
PG Post Operative Report Pre & Post Diagnosis Dental abscess K04.7 Pain, dental K08.89 Submandibular abscess K12.2 Trismus R25.2 Cellulitis, mouth floor K12.2 Abscess of pulp of tooth K04.01 Operation Date: 03/17/22 12:25 Pre-Op Diagnosis: FACIAL ABCESS Post-Op Diagnosis: FACIAL ABCESS I identified the patient and participated in the time-out.: Yes Procedure Dental abscess K04.7 Pain, dental K08.89 Submandibular abscess K12.2 Trismus R25.2 Cellulitis, mouth floor K12.2 Abscess of pulp of tooth K04.01 CPT 52610 Incision and Drainage Abscess Left Submandibular Space, D7210 tooth # 18 Operation Date: 03/17/22 12:25 Actual Procedures p Incision and Drainage Abscess Left Submandibular Space, Extraction Tooth #18(Left) - Joshua Mendes DMD Surgeon Joshua Mendes DMD Care Transition Mgr none Estimated Blood Loss 10 Findings Consistent with Post-Op Diagnosis acute facial abscess left side multiple spaces Specimens I&D pus Drains 3 Critz 1/4 drains left side Complications none Indications gross facial swelling Description of Procedure Actual Procedures p Incision and Drainage Submandibular Abscess; Removal of Tooth #18(Not Applicable) - Joshua Mendes DMD Once cleared for surgery general anesthesia was achieved, the eyes were protected by the anesthesia dept criteria. A time out was take for patient ID, antibiotics, equipment and position verification once all agreed the procedure began. Local anesthesia using Marcaine with a vasoconstrictor ( 1.8 ml per site) given into left inferior alveolar nerve A throat pack was placed after the oral cavity was irrigated with saline. Once a surgical level of anesthesia was obtained and the local anesthesia was given time for the blocks the surgery was started. I turned my attention to the infection which was located in the floor of the mouth and submental area. The tongue was elevated and there was also swelling associated with tooth # 18 ( see CT scan report) Incision and Drainage-left submandibular, masseter and floor of the mouth Using a 15 blade an incision was made medial to the alveolar ridge and lateral to the duct of the submandibular gland. Once the incision was made a lot of pus extruded from the site. This drainage was cultured for anaerobic and aerobic bacteria. A curved hemostat was carefully placed into the infected space along the medial side of the lower jaw and into the submandibular space. Some further drainage was now allowed to escape. I palpated the cheek and inferior boarder area and further drainage was expressed I made another incision and was now able to place a Critz drain into the floor of the mouth and lateral to the body of the mandible. An other drain was placed between the muscle and skin soft tissue where another pocket of PUS was encountered. The 1/4 inch Critz was now sutured with a 5-0 Nylon to hold the drains in place. The area was irrigated with at least 200 ml of NS solution. I now turned my attention to remove the # 18 tooth. Lower # 18 The full thick Muco-periosteal flap was made on the facial aspect from area # 17 -20. The flap was reflected to expose the the subperiosteal space the bone adjacent to # 18. The tooth was removed with a 301 elevator, there was a large amount of granulation tissue on the apex and some more pus that was expressed. I inspected the sites to insure all bleeding was controlled and all drains were in place. I removed the throat pack and suctioned the throat. A gauze pressure dressings was placed. All instrument and sponge count was correct. A pressure dressing was placed over the drains the patient was allowed to awake from the anesthesia. Once full awake the anesthesia tube was removed and the patient was taken to the recovery room with all vital sign stable. The patient tolerated the surgery very well. I will follow the patient in my office, Rx and instructions will be given upon discharge. Transfer back to the floor I will see patient in the AM I attest to the content of the Intraoperative Record and any orders documented therein. Any exceptions are noted below.
[2022-03-17] MEDS: fentaNYL citrate 100 MCG/2 ML VIAL IV PRN ×2 (18:55→19:00)
--- NOTE | 2022-03-17 19:20 | Anesthesiology Progress Note ---
Date of Service March 17, 2022 Anesthesia Post Procedure Vital Signs Vital Signs: Temp Pulse Pulse Pulse Resp BP Pulse Ox 03/17/22 19:10 92 H 17 143/92 H 95 03/17/22 19:00 94 H 15 139/89 94 03/17/22 18:50 102 H 18 138/88 95 03/17/22 18:46 36.2 C L 107 H 17 157/94 H 97 03/17/22 16:35 37.9 C H 87 18 128/73 96 03/17/22 15:35 88 03/17/22 12:00 36.8 C 90 20 114/75 97 03/17/22 08:00 36.8 C 112 H 18 129/79 97 03/17/22 07:43 101 H 03/17/22 02:53 36.9 C 87 17 128/74 94 03/16/22 22:27 03/16/22 22:37 36.9 C 77 16 106/63 97 03/16/22 21:06 82 18 119/76 97 Pulse Ox O2 Del Method O2 Del Method O2 Flow Rate 03/17/22 19:10 Nasal Cannula 3 03/17/22 19:00 Nasal Cannula 3 03/17/22 18:50 Nasal Cannula 4 03/17/22 18:46 Nasal Cannula 4 03/17/22 16:35 Room Air 03/17/22 15:35 03/17/22 12:00 Room Air 03/17/22 08:00 Room Air 03/17/22 07:43 03/17/22 02:53 Room Air 03/16/22 22:27 96 Room Air 03/16/22 22:37 Room Air 03/16/22 21:06 Room Air Pain Intensity Face: Pain Intensity: 3 Transfer of Care Handoff Completed per policy Notes Mental Status: alert / awake / arousable and participated in evaluation Patient Amnestic to Procedure: Yes Nausea / Vomiting: adequately controlled Pain: adequately controlled Airway Patency, RR, SpO2: stable & adequate BP & HR: stable & adequate Hydration State: stable & adequate Anesthetic Complications: no major complications apparent and Pt Satisfied with anesthetic care
[2022-03-17] MEDS ORDERED: LITHIUM CARBONATE 300 MG TAB PO SCH (21:00)
[2022-03-17] MEDS: ACETAMINOPHEN 1,000 MG/100 ML VIAL IV PRN (21:35)
[2022-03-18] MEDS: LACTATED RINGER'S 1,000 ML IV SCH ×3 (03:00→06:00)
[2022-03-18] MEDS: CLINDAMYCIN/D5W 600 MG/50 ML BAG IV SCH (04:17)
[2022-03-18] MEDS: ACETAMINOPHEN 1,000 MG/100 ML VIAL IV PRN (05:41)
--- NOTE | 2022-03-18 10:05 | Oral/Maxillofacial Progress Nt ---
Date of Service March 18, 2022 Assessment & Plan Admission and Anticipated Discharge Date Admission Date: March 16, 2022 Subjective Post Op infection evaluation at 18 hours The infected area is now healing very well. Swelling is less and the tissue is softer some drainage is noted. Drain to be removed Mar 20 at 2 pm (office-appointmentgiven) Cultures pending Infection has responded very well to the antibiotics and the I and D. I requested that the patient continue with massage, heat and wound care. At this time the area is well healed and responded well to treatment. OK for Discharge and follow up with Dr Mendes as outpatient Results & Data ([facility]) Vital Signs (Past 12 Hours) Vital Signs Temp Pulse Pulse Resp BP Pulse Ox O2 Del Method 03/18/22 07:00 36.9 C 77 16 145/63 H 96 Room Air 03/18/22 07:30 76 03/18/22 02:52 37.1 C 85 19 137/78 94 Room Air 03/17/22 22:28 36.8 C 87 18 127/85 93 Room Air PG Care Time/CCT Total # of Minutes Spent Total Time Spent with Patient: Total time spent is greater than 50% in coordination of care (as documented) at patient's floor/unit and/or counseling patient: Coding Level of Care Code 55774 Subseq Hosp Care Lvl 1
--- NOTE | 2022-03-18 10:30 | Discharge Summary ---
Date of Service March 18, 2022 Admission HPI Per Admitting Provider Farzad Hunt is a 46 y/o male with a PMH of bipolar disorder and hypothyroidism who is presenting today at the referral of an outside oral surgeon due to concerns for facial cellulitis and abscess. One week ago today, he noticed a sudden onset of stabbing jaw pain on the left side that was mild at first, however over the course of 3 days became quite severe. On Sunday he woke up with obvious swelling on the left side of his face in the jaw area. He saw his dentist 2 placed him on clindamycin with Flagyl and referred him to an oral surgeon. He saw Dr. Johnston in [place] today, due to the severity of the swelling and the fact that he will be getting worse despite oral antibiotics for 2 days, he referred him to the ED for further evaluation. Patient complains of worsening swelling to the area causing a great deal of pain, otherwise has been without any fever chills, myalgias, fatigue. Feels he is breathing well, handling his own secretions and has not had any swallowing difficulties. It is somewhat uncomfortable for him to sleep at night, but has not been struggling to breathe. He is not sure how the infection started, he notes he does have several dental cavities he has been meaning to address, but has had no acute injury to the mouth, no recent injuries. He does use smokeless tobacco several times a week. Labs significant for WBC 13 w/ left shift, creatinine elevated 1.59, with sodium of 133. AST and ALT also mildly elevated at 42 and 53 respectively. He also has a normocytic anemia, with an Hgb of 12.2. 13.7 on last check in 2019. Face CT: Left facial and upper neck cellulitis. Rim-enhancing fluid collection within the left masseter muscle, measuring approximately 4 x 2 x 1.7 cm. This represents an intramuscular abscess. Possible tiny abscess within the left medial pterygoid muscle. Definitive source is not identified although this may be odontogenic. Subtle periapical lucency/abscess of the left second mandibular molar. Multiple dental caries. Admission Exam Per Admitting Provider Physical Exam: General: awake, alert, no apparent distress Head: Normocephalic, atraumatic ENT: Left-sided facial and jaw swelling with tenderness to palpation; oral exam limited due to patient's inability to open mouth wide, however uvula is midline, there is no tongue or lip swelling, poor dentition noted throughout; PERRL, EOMI, no pharyngeal exudate, mucous membranes moist Chest: Clear to auscultation, on room air, no adventitious breath sounds Cardiac: Regular rate and rhythm, no murmur, no JVD, normal peripheral pulses, good capillary refill Abdominal: NABS x 4 quadrants, soft, nontender to palpation, no rebound, guarding or tenderness Extremities: Normal inspection, no peripheral edema or erythema, calfs nontender to palpation Psych: Normal mood and affect Neuro: AAO x 3, strength intact bilaterally and rated 5/5, no motor deficits, speech is clear, no peripheral sensory deficits Skin: no rash or erythema Principal Diagnosis Facial cellulitis with soft tissue abscess of the left masseter muscle Discharge Exam GENERAL : No acute distress. Anxious to be discharged EYES: No icterus, gaze conjugate NOSE: No evidence of epistaxis MOUTH: No lesions or candidiasis. No active bleeding. NECK: Supple. Submandibular dressing dry and intact LUNGS: CTA B/L, no wheezes, rales or rhonchi HEART: Regular, rate controlled ABDOMEN: Soft, NT, ND, BS Present EXTREMITIES: No LE edema, pedal pulses intact NEURO: A&OX3 Discharge Data Allergies Allergy/AdvReac Type Severity Reaction Status Date / Time Penicillins Allergy Unknown . Verified 03/20/22 13:45 shellfish derived Allergy Unknown Verified 03/20/22 13:45 Consultations 03/16/22 20:59 Consult Oromaxillofacial Surgery Routine 03/16/22 21:04 ED Decision to Admit Stat Procedures Performed Operation Date: 03/17/22 12:25 Actual Procedures p Incision and Drainage Abscess Left Submandibular Space, Extraction Tooth #18(Left) - Joshua Mendes, ETHAN Ordered Studies 03/16/22 18:55 CT facial bones w con Stat FACIAL CT WITH CONTRAST CLINICAL HISTORY: Left-sided facial swelling. Evaluate for abscess. COMPARISON STUDY: Sinus CT May 30, 2011. TECHNIQUE: Axial images of the face were obtained following intravenous injection of 81 cc of Optiray 350 IV. Sagittal and coronal reconstructions were viewed. Automated exposure control was utilized for the study. A dose lowering technique was utilized adhering to the principles of ALARA. FINDINGS: Visualized portions of the intracranial contents are unremarkable. Mastoid air cells are clear. There is mild polypoid mucosal thickening of the sinuses. Orbits are unremarkable. There is extensive left facial and upper neck stranding. There is asymmetric thickening of the left platysma. Note is made of a complex multiloculated rim-enhancing fluid collection within the left masseter muscle. This measures approximately 4 x 2 x 1.7 cm. Possible tiny fluid collection within the medial left medial pterygoid muscle is noted with slight asymmetric enlargement of this muscle as well. There is adjacent stranding. No additional fluid collections are present. The parotid and submandibular glands are unremarkable. There is no mass effect upon the airway. Epiglottis is normal. Several dental caries are noted. There is subtle periapical lucency of the left second mandibular molar. Multiple enlarged left cervical lymph nodes are noted. Index left level 2 node measures 1.4 x 1.3 cm. These nodes are likely reactive. IMPRESSION: 1. Left facial and upper neck cellulitis. Rim-enhancing fluid collection within the left masseter muscle, measuring approximately 4 x 2 x 1.7 cm. This represents an intramuscular abscess. Possible tiny abscess within the left medial pterygoid muscle. Definitive source is not identified although this may be odontogenic. Subtle periapical lucency/abscess of the left second mandibular molar. Multiple dental caries. 2. Left cervical lymphadenopathy which is likely reactive. ACT 112: Negative or not required by law. Electronically signed by: Hunter Cristina M.D. 03/16/2022 8:12 PM Hospital Course (1) Abscess of face: (2) ZHANNA (acute kidney injury): (3) Hyponatremia: (4) Bipolar disorder: (5) Currently smokes tobacco: Plan Attending: Dr. Cartagena Impression: 46-year-old male that presents with facial pain. CT scan revealed rim-enhancing fluid collection in the left masseter muscle requiring incision and drainage and extraction of tooth. Oromaxillary surgery was consulted and patient was managed by Dr. Joshua Mendes while inpatient. Patient was found to have elevated lithium level on admission. Psychiatry was consulted and dose was reduced to 900 mg daily with plan for follow-up outpatient by patient's primary prescriber. Patient did well during his inpatient stay and was discharged on antibiotics as well as a follow-up appoint with Dr. Mendes for further outpatient management. (1) Cellulitis and abscess of oral soft tissues: Plan: - 1 week of worsening left sided jaw pain and swelling. - Face CT: * Left facial and upper neck cellulitis. Rim-enhancing fluid collection within the left masseter muscle, measuring approximately 4 x 2 x 1.7 cm. This represents an intramuscular abscess. Possible tiny abscess within the left medial pterygoid muscle. Definitive source is not identified although this may be odontogenic. Subtle periapical lucency/abscess of the left second mandibular molar. Multiple dental caries. * Left cervical lymphadenopathy which is likely reactive. - WBC 13 w/ neutrophil predominance. - Admitted to PCU to monitor airway given severity of swelling. HOB elevated at night. No complications while inpatient - Patient placed on clindamycin IV as an inpatient and discharged on clindamycin 300 mg p.o. 3 times daily x7 days - Dr. Mendes with oromaxillary service consulted, appreciate his assistance and recommendations. Outpatient follow-up with Dr. Mendes (2) Bipolar disorder: Plan: -[place] 1500 mg p.o. at bedtime as an outpatient. [place] held on admission given elevated level, suspect due to elevated Cr. After discussion with psychashely nur, will discharge patient on 900 mg p.o. at bedtime with follow-up labs outpatient - continue seroquel at home dose on discharge (3) ZHANNA (acute kidney injury): Plan: Resolved with IV fluids Continue to encourage oral intake on discharge (4) Hyponatremia: Plan: Resolved with IV fluids (5) Currently smokes tobacco: Plan: - Quit smoking cigarettes in November, uses chewing tobacco frequently, not daily. - Recommend cessation. Patient expresses agreement with complete cessation of all tobacco products Plan - Admitted to PCU for airway monitoring. No adverse events during the admission - SCDs for VTE ppx, defer on chemoppx given age, mobility. - Full Code. Discharge home with outpatient follow-up as described in discharge summary Total Time Total Time Spent Total Time Spent (In Minutes): 45 Discharge Plan Discharge Items Patient Disposition: Home - Self-Care Reason For Visit: FACIAL ABCESS Discharge Diagnosis: s/p acute facial infection Condition on Discharge: Good Activity: As commented below Activity Comment: take it easy for a few day, change the dressing as needed Lifting: Gradually increase as tolerated Bathing: No limitations Exercise/Sports: Gradually increase as tolerated Driving/Machine Use: Resume 1 day after discharge Weightbearing: Full weightbearing Non-emergency contact: Surgeon Call non-emergency contact if: you have any medication questions, your symptoms worsen, your temperature is above 101.5, your wound has increased redness, your wound has increased drainage and your wound pain has increased Follow-up/Referrals: Tez Randolph MD [Primary Care Provider] - Joshua Mendes DMD [Physician] - Diet: Regular Diet Texture: Easy to Chew Diet Comment: start with clear--full-dental soft as tolerated Addtl Attending Provider Instructions: You were admitted for mouth pain and found to have a dental abscess which required surgery. You underwent incision and drainage with Dr. Mendes. You should continue to follow with him as an outpatient as listed below. In addition, your lithium level was found to be elevated 1.7. [place] was held during this hospital admission. On discharge, you should reduce your dose from 1500 mg each night to 900 mg each night and contact your prescriber no later than Sunday. Continue to abstain from all tobacco products Continue maintain good intake of fluids. Follow-up with all outpatient appointments. Addtl Publication Editor Provider Instructions: ADDITIONAL ACTIVITY RECOMMENDATIONS: * [place] teeth after every meal. It is very important to keep your mouth clean to prevent infection. * Starting tonight rinse with the Peridex as directed then 2 x a day * it is very important to keep well hydrated, this prevents fever and possible dry socket pain SPECIAL CARE INSTRUCTIONS: *It is not uncommon that between day 2-4 that your swelling will be at its worst this is very normal, do not be alarmed. * Once you get home apply heat (hot water bottle or heating pad) for the next two days, as often as possible. * Tomorrow start rinsing your mouth with 1/2 teaspoon salt in 8 ounces warm water. This rinse should be used every 4-6 hours. * You may experience slight nausea. To prevent this, never take your medication on an empty stomach. If nauseated, take small sips of moise shaka until you feel better; then you may start on applesauce and toast. * Some swelling is common. It should gradually decrease within 4-5 days. * A certain amount of bleeding is to be expected. It is often possible to control mild oozing by placing folded gauze over the area and biting down for 30 minutes. If you are unable to control excessive bleeding, call Dr Mendes at [phone] * You may experience some discomfort for a few days. If pain or swelling increases, Call Dr Mendes * Return to the office for a follow up check up on: SundayMAR 20 for drain removal * office address--[address]. phone # [phone] Pending Studies at Discharge: No Stand-Alone Forms: [facility], Smoking Cessation Medications and DC Order Prescriptions: New lithium carbonate 300 mg Tablet 900 mg PO HS Qty: 0 0RF Continued clindamycin HCl 300 mg capsule 300 mg PO TID 7 Days Qty: 21 0RF hydrocodone-acetaminophen 5-325 mg tablet 1 tab PO Q4H PRN (Reason: pain) Qty: 14 0RF quetiapine [Seroquel XR] 300 mg tablet extended release 24 hr 600 mg PO HS Discontinued lithium carbonate 300 mg tablet 1,500 mg PO HS Discharge Orders: Discharge Order (Routine); Ordered 03/18/22 Ordered By: Cesar Rm/Other Patient Handouts: Dental Abscess, Staying Smoke-Free, Dental Abscess Facial Cellulitis, ED Tooth Abscess Admission Data Admit Date/Time: 03/16/22 21:15 Attending Provider: Mata Cartagena Admit Provider: Jamil Alatorre Primary Care Provider: Tez Randolph Other Providers: Joshua Mendes ; Jamil Alatorre Other Interventions: Discharge Summary Assessment (RN) Last Done: 03/18/22 13:42 Coding Level of Care Code D/C DAY MANAGEMENT >30 MINS Diagnoses Abscess of face L02.01 ZHANNA (acute kidney injury) N17.9 Hyponatremia E87.1 Bipolar disorder F31.9 Currently smokes tobacco F17.200 Time Spent (min) 45
[2022-03-18] MEDS ORDERED: traMADol HCL 50 MG TABLET PO STA (10:55)
[2022-03-18 11:24] LABS: Creatinine Clr Calc Pharmacy 125.3 ml/min; Est GFR (African American) 120.3 ml/min; Est GFR (Non-African American) 103.8 ml/min
== END 2022-03-18 14:07 | disposition home or self-care (01) | DRG 137 ==
LOC: ED 17:48 → SUATTDRO 21:15 → 2E 21:15